=== PATIENT | female | born 1995 | race Caucasian/White ===

== ENCOUNTER 2018-05-22 10:05 | Inpatient (IN) | payer BC ==
[2018-05-22] MEDS ORDERED: Misoprostol TAB* 100 MCG VAGINAL ONE (10:45)
--- NOTE | 2018-05-22 11:11 | HP ---
General Information - Reason for Visit Cervical ripening/ IOL for suspected macrosomia and GDM, diet-controlled, at 39 weeks gestation - General Information Maternal Age: 23 Grav: 1 Para: 0 SAB: 0 IEA: 0 Estimated Due Date: 05/28/18 Determined By: LMP Maternal Blood Type and Rh: A Positive - Results this Serology/RPR Result: Non-Reactive Rubella Result: Immune HBsAg Result: Negative HIV Result: Negative GBS Culture Result: Positive Past Medical History Delivery History: See Records - primigravida Pertinent Past Medical History: Non-Contributory - migraines, environmental allergies Pertinent Past Surgical History: See Records - wisdom tooth extraction Pertinent Family History: See Records - Hypertension - Antepartal Records Antepartal Records: Reviewed, Complicated by: - GDM- diet controlled Review of Systems Constitutional: Comfortable CV Complaint: No Respiratory: Shortness of Breath: No Gastrointestinal: No Nausea/Vomiting, Normal Bowel Movement Genitourinary: No Dysuria, No Bleeding, No Leaking Fluid Musculoskeletal: No Complaint, No Epigastric Pain Neurological: No Headache, No Visual Changes Movement: Normal Exam Allergies/Adverse Reactions: Allergies No Known Allergies Allergy (Verified 05/22/18 11:11) Vital Signs 05/22/18 10:10 Temperature 97.2 F Pulse Rate 69 Respiratory 20 Rate Blood Pressure 131/71 (mmHg) O2 Sat by Pulse 99 Oximetry - Measurements Height: 5 ft 9 in Weight: 94.801 kg Weight in lbs: 209.501417 Body Mass Index (BMI): 30.8 Pre- Weight: 78.018 kg Weight Gained This : 37 lbs and 0 ozs - Exam Breast: Breast Exam Deferred CVA: No CVA Tenderness Extremities: Edema - trace pedal edema Heart: Normal Rhythm/Heart Sounds HEENT: No Significant Findings Lungs: Clear Bilaterally Rectal: Rectal Exam Deferred Reflexes: DTR 2+ Thyroid: No Thyromegaly - Abdominal Exam Abdomen Exam: Non-Tender Abdomen Exam Comment: Size>dates - Ultrasound/Biophysical Profile Ultrasound Status: Not Done Targeted Exam Findings See L&D Outpatient Visit Provider Note for Findings: N/A Estimated Weight: 9# Cervical Exam: 1cm Effacement: 50% Station: -2 Presenting Part: Vertex Membrane Status: Intact Bleeding/Discharge: None EFM Findings - External Monitor Findings Baseline Heart Rate: 120 External Monitor Findings: Accelerations Present, No Pattern of Variable or Late Decelerations, Variability Moderate, Baseline Stable Contractions: Irregular, Mild, 45-90 Seconds Assessment/Plan - Assessment 23 year old at 39 1/7 weeks gestation with diet-controlled gestational diabetes aqnd suspected macrosomia with Cat I FHR tracing, no evidence of acidemia, membranes intact, Cox score 5. - Obstetrical Risk Factors Obstetrical Risk Factors: Gestational Diabetes Risk Factors Comment: suspected macrosomia - Plan Plan: Cervical Ripening, Admit - Anticipate Vaginal Delivery Plan Comment: Discussed options for plan of care with pt and at length. Discussed suspected macrosomia in the presence of GDM. Current EFW 4143 grams. Counseled that ACOG recommendations are to offer an elective with EFW > 4500 grams, but that due to margin of error on EFW by sono, it is difficult to know for sure how large the baby is. Counseled that risks of trial of labor w/ a macrosomic baby can include arrest disorder resulting in unplanned delivery, pelvic trauma, and shoulder dystocia, which can lead to injury to the , including fractures; brachial nerve injury which can lead to paralysis of the affected arm; and, rarely, . Counseled that risks of delivery, while also rare, can include injury, infection, and hemorrhage. After discussing risks and benefits of trial of labor, as addressed above, pt and state a strong preference for attempting vaginal . They are aware that in the presence of prolonged second stage may recommend delivery. Discussed options for proceeding with IOL. Cox score currently 5. Recommended cervical ripening. Discussed options for cervical ripening, including misoprostol and Cervidil. After discussing options with pt, plan made to start with vaginal misoprostol, and consider Cervidil overnight if further ripening required. - Date/Time of Admission Date of Admission: 05/22/18 Time of Admission: 10:45
--- NOTE | 2018-05-22 15:45 | PN ---
Progress Note - Progress Note Date of Service: 05/22/18 SOAP: Subjective: [Pt reports she is feeling regular ctx, some moderately strong, others just "crampy." Still reasonably comfortable. Reports active FM. Denies SROM. ] Objective: [FHR tracing: baseline- 130, moderate variability, + accels, moderate variability, no decels UC's mild, irregular Cervical exam: 2cm/ 80%/ -2, Cox score 8 Membranes intact Vital signs stable: BP 119/63, P-64] Assessment: [23 year old at 39 1/7 weeks gestation with diet-controlled GDM, no evidence of acidemia, with cervix favorable for induction] Plan: [Discussed options with pt and , including initiating Pitocin induction, attempting to further ripen cervix, or waiting until AM to start Pitocin induction. Recommended trial of Pitocin unless pt w/ preference to wait until morning. Pt prefers to initiate Pitocin at this time. Discussed risks and benefits of Pitocin induction, need for continuous monitoring. Will initiate low dose Pitocin at 2 mu/ min Will start GBS prophylaxis at onset active labor]
[2018-05-22] MEDS ORDERED: Oxytocin in LR* 20 UNITS/1,000 ML BAG IVPB SCH (16:00)
[2018-05-22 16:12] LABS: ABS Basophils 0.1 10^3/ul (0-0.2); ABS Eosinophils 0.1 10^3/ul (0-0.6); ABS Lymphocytes 1.9 10^3/ul (1.0-4.8); ABS Monocytes 1.1 10^3/ul (0-0.8); ABS Neutrophils 7.3 10^3/ul (1.5-7.7); ABS Nucleated RBC 0 10^3/ul; Hematocrit 31 % (35-47); Hemoglobin 10.3 g/dl (12.0-16.0); Lymphocyte % 18.5 % (25-47); Mean Corpuscular HGB Conc 33 g/dl (31-36); Mean Corpuscular Hemoglobin 27 pg (27-31); Mean Corpuscular Volume 83 fL (80-97); Mean Platelet Volume 7.6 um3 (7.4-10.4); Nucleated Red Blood Cells % 0.1; Platelet Count 338 10^3/ul (150-450); Red Blood Count 3.77 10^6/ul (4.00-5.40); Red Cell Distribution Width 15 % (10.5-15); White Blood Count 10.5 10^3/ul (3.5-10.8)
[2018-05-22] MEDS ORDERED: OBEPIDURAL* 250 ML EPIDURAL ONE (21:42)
[2018-05-22] MEDS ORDERED: Sodium Citrate/Citric Acid* 15 ML UDC PO PRN (22:18)
[2018-05-22] MEDS ORDERED: Phenylephrine IV* 40 MCG/ML 10 ML SYRINGE IV PUSH PRN (22:18)
[2018-05-22] MEDS ORDERED: Famotidine TAB* 20 MG PO PRN (22:18)
[2018-05-22] MEDS ORDERED: EPHEDrine (Pressors)* 50 MG/ML VIAL IV PUSH PRN (22:18)
[2018-05-22] MEDS ORDERED: OBEPIDURAL* 250 ML EPIDURAL SCH (23:00)
[2018-05-22] MEDS ORDERED: Penicillin G Potassium IV* 5,000,000 UNITS in NS 0.9% 100 ML* 100 ML IVPB ONE (23:39)
[2018-05-23] MEDS ORDERED: Glycerin ADULT SUPP PR PRN (02:05)
[2018-05-23] MEDS ORDERED: Witch Hazel PAD* JAR TOPICAL PRN (02:05)
[2018-05-23] MEDS ORDERED: Acetaminophen TAB* 325 MG PO PRN (02:05)
[2018-05-23] MEDS ORDERED: Dibucaine 1% 28.35 GM TUBE PR PRN (02:05)
[2018-05-23] MEDS ORDERED: Methylergonovine INJ* 0.2 MG/ML 1ML AMP ONE (02:36)
[2018-05-23] MEDS ORDERED: Oxytocin in LR* 20 UNITS/1,000 ML BAG IVPB SCH (03:00)
--- NOTE | 2018-05-23 03:29 | PROCNOTE ---
[facility] OB: Delivery Note - Delivery A Date of : 05/23/18 Time of : 01:59 [place] Sex: Male Weight at : 4.28 kg Score 1 Minute: 9 Score 5 Minutes: 9 Gestational Age in Weeks and Days at Delivery: 39 Weeks and 2 Days Delivery Method: Spontaneous Vaginal Labor: Induced Did Patient attempt ?: N/A, No Previous Amniotic Fluid: Clear Estimated Blood Loss: 800 Anesthesia/Analgesia: CEI for Labor Delivered By: Ewa Hoff - Nursery Level of Nursery: Regular/Bedside - Perineum Perineal Injury: 2nd Degree Perineal Repair: By Delivering Practioner - Events Delivery Events of Note: Pitocin During Labor, Partial Course of Antibiotics, Post- Bleeding - Meds Given - Risk for Falls Delivered OB Patient- Risk for Falls: Heavy Bleeding Fall Risk: Patient is at High Risk for Falls - Additional Delivery Notes Additional Delivery Notes: Pt admitted to L&D for scheduled induction of labor at 39 1/7 weeks gestation for GDM and suspected macrosomia. Cervical ripening initiated with misoprostol. After one dose, cervix found to be favorable for induction of labor and Pitocin initiated. Pt remained comfortable with Pitocin until SROM with clear fluid occurred at 2128. At that time contractions became very intense , and pt requested and received an epidural with good relief of pain. Pt continued to progress and at 0054 began to push. At that time Dr. Tavarez notified and came to be present for the in case of shoulder dystocia. Pt pushed effectively with good effort and progressed to . Infant's head delivered OA to FIORELLA. Shoulders then delivered with gentle traction. to maternal abdomen, vigorous with lusty cry. After pulsation of cord ceased cord clamped x2 and cut by 's father. After nearly 30 minutes of gentle cord traction, placenta did not deliver, so Dr. Tavarez called to bedside to assist, and he delivered the placenta. At that time, Pitocin increased to 250 cc/ hr. Brisk bleeding noted, and several large clots expressed. Fundal massage performed and Cytotec 400 mcg administered MN. Bleeding slowed then more clots expressed and methergine 0.2mg administered IM. Bleeding minimal since that time. Second degree perineal laceration repaired using 3-0 Rapide suture resulting in good tissue approximation and hemostasis. Infant starting to breastfeed. Mother and stable at the time of this note.
[2018-05-23] MEDS ORDERED: Methylergonovine INJ* 0.2 MG/ML 1ML AMP IM ONE (03:34)
[2018-05-23] MEDS ORDERED: Misoprostol TAB* 200 MCG PR ONE (03:34)
[2018-05-23] MEDS ORDERED: Penicillin G Potassium IV* 2,500,000 UNITS in NS 0.9% 100 ML* 100 ML IVPB SCH (04:00)
[2018-05-23 06:46] LABS: ABS Basophils 0 10^3/ul (0-0.2); ABS Eosinophils 0 10^3/ul (0-0.6); ABS Lymphocytes 1.8 10^3/ul (1.0-4.8); ABS Monocytes 1.4 10^3/ul (0-0.8); ABS Neutrophils 16.5 10^3/ul (1.5-7.7); ABS Nucleated RBC 0 10^3/ul; Eosinophil % 0.1 % (0-6); Hematocrit 30 % (35-47); Hemoglobin 9.8 g/dl (12.0-16.0); Lymphocyte % 8.9 % (25-47); Mean Corpuscular HGB Conc 33 g/dl (31-36); Mean Corpuscular Hemoglobin 27 pg (27-31); Mean Corpuscular Volume 83 fL (80-97); Mean Platelet Volume 7.4 um3 (7.4-10.4); Nucleated Red Blood Cells % 0.1; Platelet Count 296 10^3/ul (150-450); Red Blood Count 3.61 10^6/ul (4.00-5.40); Red Cell Distribution Width 15 % (10.5-15); White Blood Count 19.7 10^3/ul (3.5-10.8)
[2018-05-23] MEDS: Ibuprofen TAB* 600 MG PO PRN ×3 (07:56→19:36)
[2018-05-23] MEDS: Docusate CAP* 100 MG PO SCH ×3 (07:56→19:36)
[2018-05-23] MEDS: Simethicone TAB* 80 MG TAB.CHEW PO SCH ×2 (13:48→19:22)
[2018-05-24] MEDS: Ibuprofen TAB* 600 MG PO PRN ×4 (01:15→19:36)
[2018-05-24] MEDS: Docusate CAP* 100 MG PO SCH ×3 (07:35→19:35)
[2018-05-24 07:39] LABS: ABS Basophils 0 10^3/ul (0-0.2); ABS Eosinophils 0.2 10^3/ul (0-0.6); ABS Lymphocytes 2.5 10^3/ul (1.0-4.8); ABS Monocytes 1.1 10^3/ul (0-0.8); ABS Neutrophils 8.7 10^3/ul (1.5-7.7); ABS Nucleated RBC 0 10^3/ul; Eosinophil % 1.9 % (0-6); Hematocrit 25 % (35-47); Hemoglobin 8.1 g/dl (12.0-16.0); Lymphocyte % 19.7 % (25-47); Mean Corpuscular HGB Conc 33 g/dl (31-36); Mean Corpuscular Hemoglobin 27 pg (27-31); Mean Corpuscular Volume 84 fL (80-97); Mean Platelet Volume 7.5 um3 (7.4-10.4); Nucleated Red Blood Cells % 0.1; Platelet Count 290 10^3/ul (150-450); Red Blood Count 2.95 10^6/ul (4.00-5.40); Red Cell Distribution Width 15 % (10.5-15); White Blood Count 12.5 10^3/ul (3.5-10.8)
[2018-05-24] MEDS: Ferrous Gluconate TAB* 324 MG TAB PO SCH (08:25)
--- NOTE | 2018-05-24 15:45 | PTEDU ---
Patient Name: SIMRAN LAW SIMRAN LAW selected video: Never Ever Shake a Baby to view on 05/24/2018 at 3:44:51 PM [id number]
[2018-05-25] MEDS: Ibuprofen TAB* 600 MG PO PRN (04:29)
[2018-05-25 09:02] VITALS: BP 122/68
[2018-05-25] MEDS: Docusate CAP* 100 MG PO SCH (09:32)
[2018-05-25] MEDS: Ferrous Gluconate TAB* 324 MG TAB PO SCH (09:32)
== END 2018-05-25 12:27 | disposition home or self-care (01) | DRG 560 ==
LOC: MCHOBOUT 10:05 → MCHOB 10:45
PROVIDERS: ADMIT Midwife; ATTEND Midwife
PROC: 10E0XZZ Delivery of Products of Conception, External Approach (ICD-10-PCS; principal; 2018-05-25)
PROC: 3E0P7VZ Introduction of Hormone into Female Reproductive, Via Natural or Artificial Opening (ICD-10-PCS; 2018-05-25)
PROC: 3E033VJ Introduction of Other Hormone into Peripheral Vein, Percutaneous Approach (ICD-10-PCS; 2018-05-25)
PROC: 4A1HXCZ Monitoring of Products of Conception, Cardiac Rate, External Approach (ICD-10-PCS; 2018-05-25)
PROC: 0KQM0ZZ Repair Perineum Muscle, Open Approach (ICD-10-PCS; 2018-05-25)
PROC: 0UCG7ZZ Extirpation of Matter from Vagina, Via Natural or Artificial Opening (ICD-10-PCS; 2018-05-25)
DX: O24.420 Gestational diabetes mellitus in childbirth, diet controlled (principal); O72.1 Other immediate postpartum hemorrhage; Z37.0 Single live birth; Z3A.39 39 weeks gestation of pregnancy; O36.63X0 Maternal care for excessive fetal growth, third trimester, not applicable or unspecified; O99.824 Streptococcus B carrier state complicating childbirth; Z91.048 Other nonmedicinal substance allergy status; Z82.49 Family history of ischemic heart disease and other diseases of the circulatory system; O70.1 Second degree perineal laceration during delivery; O90.81 Anemia of the puerperium
CPT/HCPCS: 36415; 85025; 86850; 86900; 86901; A9270-GY; J2210; J2540; S0191

== ENCOUNTER 2019-10-14 16:22 | Emergency (ER) | payer BC ==
[2019-10-14 17:10] VITALS: BP 139/73
--- NOTE | 2019-10-14 17:30 | UC ---
Throat Pain/Nasal Dmitri HPI - HPI Summary HPI Summary: Pt presents with c/o ST X 1 week. Pt states right side hurts worse than left. Pain is worse at end of day and with swallowing. NO difficulty with swallowing. Denies fever or chills. - History of Current Complaint Chief Complaint: UCGeneralIllness Stated Complaint: SORE THOAT Time Seen by Provider: 10/14/19 17:04 Hx Obtained From: Patient ?: No Onset/Duration: Gradual Onset, Lasting Days, Still Present Severity: Mild Pain Intensity: 4 Cough: Nonproductive Associated Signs & Symptoms: Positive: Dysphagia - Epiglottits Risk Factors Epiglottis Risk Factors: Negative - Allergies/Home Medications Allergies/Adverse Reactions: Allergies Allergy/AdvReac Type Severity Reaction Status Date / Time seasonal Allergy Congestion Uncoded 10/14/19 17:11 Home Medications: Home Medications Vitamin Tablet 1 tab PO DAILY 05/22/18 [History Confirmed 10/14/19] ZyrTEC 10 MG TAB* 10 mg PO DAILY 05/22/18 [History Confirmed 10/14/19] Acetaminophen TAB* [Tylenol TAB*] 650 mg PO Q4H PRN tab 05/25/18 [Rx Confirmed 10/14/19] Ibuprofen TAB* [Motrin TAB* 600 MG] 600 mg PO Q6H PRN tab 05/25/18 [Rx Confirmed 10/14/19] PMH/Surg Hx/FS Hx/Imm Hx Previously Healthy: Yes - Surgical History Surgical History: None - Family History Known Family History: Positive: Cardiac Disease - Social History Occupation: Employed Full-time Lives: With Family Alcohol Use: Rare Substance Use Type: None Smoking Status (MU): Never Smoked Tobacco Have You Smoked in the Last Year: No - Immunization History Most Recent Influenza Vaccination: 05/06/18 Most Recent Pneumonia Vaccination: N/A Vaccination Up to Date: Yes Review of Systems All Other Systems Reviewed And Are Negative: Yes Constitutional: Positive: Negative Skin: Positive: Negative Eyes: Positive: Negative ENT: Positive: Sore Throat Respiratory: Positive: Cough Cardiovascular: Positive: Negative Gastrointestinal: Positive: Negative Genitourinary: Positive: Negative Motor: Positive: Negative Neurovascular: Positive: Negative Musculoskeletal: Positive: Negative Neurological/Mental Status: Positive: Negative Psychological: Positive: Negative Is Patient Immunocompromised?: No Physical Exam Triage Information Reviewed: Yes Appearance: Well-Appearing Vital Signs: Initial Vital Signs Temp 99.7 F 10/14/19 17:05 Pulse 96 10/14/19 17:05 Resp 18 10/14/19 17:05 BP 139/73 10/14/19 17:05 Pulse Ox 100 10/14/19 17:05 Vital Signs Reviewed: Yes Eye Exam: Normal ENT: Positive: Pharyngeal erythema, Tonsillar swelling Dental Exam: Normal Neck exam: Normal Neck: Positive: Supple, Nontender, No Lymphadenopathy Respiratory: Positive: No respiratory distress Musculoskeletal Exam: Normal Neurological Exam: Normal Psychological Exam: Normal Skin Exam: Normal Throat Pain/Nasal Course/Dx - Differential Dx/Diagnosis Differential Diagnosis/HQI/PQRI: Mononucleosis, Pharyngitis, Tonsillitis Provider Diagnosis: Sore throat (viral) Discharge ED - Sign-Out/Discharge Documenting (check all that apply): Patient Departure All imaging exams completed and their final reports reviewed: No Studies - Discharge Plan Condition: Stable Disposition: HOME Patient Education Materials: Pharyngitis (ED), Safe Use of NSAIDs (ED) Referrals: Sandra Chacon MD [Primary Care Provider] - If Needed - Billing Disposition and Condition Condition: STABLE Disposition: Home
== END 2019-10-14 17:36 | disposition home or self-care (01) ==
LOC: UCCORT 16:22
DX: J02.9 Acute pharyngitis, unspecified (principal); R05 Cough; Z91.09 Other allergy status, other than to drugs and biological substances
CPT/HCPCS: 87070; 87651; 99211; G0463

== ENCOUNTER 2020-11-14 07:57 | Inpatient (IN) ==
[2020-11-14] MEDS ORDERED: Lactated Ringers 1000 ml BAG 1,000 ML IV ONE ×2 (08:22→20:13)
[2020-11-14] MEDS ORDERED: Buffered Lidocaine 1% SYRIN 1 ml INTRADERM ONE (08:22)
[2020-11-14 10:00] LABS: ABS Basophils 0.1 10^3/ul (0-0.2); ABS Eosinophils 0.2 10^3/ul (0-0.6); ABS Lymphocytes 2.6 10^3/ul (1.0-4.8); ABS Monocytes 1.5 10^3/ul (0-0.8); ABS Neutrophils 10.3 10^3/ul (1.5-7.7); Eosinophil % 1.2 %; Hematocrit 35 % (35-47); Hemoglobin 11.9 g/dL (12.0-16.0); Lymphocyte % 17.6 %; Mean Corpuscular HGB Conc 34 g/dL (31-36); Mean Corpuscular Hemoglobin 31 pg (27-31); Mean Corpuscular Volume 93 fL (80-97); Mean Platelet Volume 7.1 fL (7.4-10.4); Nucleated Red Blood Cells % 0.1; Platelet Count 379 10^3/uL (150-450); Red Blood Count 3.79 10^6 /uL (3.70-4.87); Red Cell Distribution Width 14 % (10-15); White Blood Count 14.6 10^3/uL (3.5-10.8)
[2020-11-14 10:15] LABS: Urine Benzodiazepine Screen None Detected (None Detect); Urine Cannabinoids Screen None Detected (None Detect); Urine Opiates Screen None Detected (None Detect)
[2020-11-14] MEDS ORDERED: Oxytocin in LR 20 UNITS/1,000 ML BAG IVPB SCH (15:00)
[2020-11-14] MEDS ORDERED: OBEPIDURAL 250 ML EPIDURAL ONE (19:10)
[2020-11-14] MEDS: Lactated Ringers 1000 ml BAG 1,000 ML IV SCH ×2 (19:30→22:06)
[2020-11-14] MEDS ORDERED: Bupivacaine 0.25% SDV PF 10 ML VIAL INJ ONE (19:35)
[2020-11-14] MEDS ORDERED: Phenylephrine 40 mcg/mL 10mL (400mcg) SYRINGE IV PUSH PRN ×2 (20:13)
[2020-11-14] MEDS ORDERED: Sodium Citrate/Citric Acid LIQ 15 ML UDC PO PRN (20:13)
[2020-11-14] MEDS ORDERED: EPHEDrine (Pressors) 50 MG/ML VIAL IV PUSH PRN ×2 (20:13)
[2020-11-14] MEDS ORDERED: Lactated Ringers 1000 ml BAG 500 ML IV PRN ×2 (20:13)
[2020-11-14] MEDS ORDERED: Lactated Ringers 1000 ml BAG 1,000 ML IV SCH (21:00)
[2020-11-14] MEDS ORDERED: OBEPIDURAL 250 ML EPIDURAL SCH (21:00)
[2020-11-14 21:20] LABS: Urine Appearance Clear; Urine Bilirubin Negative (Negative); Urine Blood Negative (Negative); Urine Color Colorless; Urine Glucose Negative (Negative); Urine Ketones Negative (Negative); Urine Nitrite Negative (Negative); Urine Protein Negative (Negative); Urine Specific Gravity 1.002 (1.002-1.030); Urine Urobilinogen Negative (Negative)
[2020-11-15] MEDS ORDERED: Dibucaine 1% OINT 28.35 GM TUBE PR PRN (03:10)
[2020-11-15] MEDS ORDERED: Methylergonovine 0.2 mg AMPULE 1 ml AMP IM ONE (03:10)
[2020-11-15] MEDS ORDERED: Witch Hazel PAD JAR TOPICAL PRN (03:10)
[2020-11-15] MEDS ORDERED: Varicella Virus Vaccine Live 0.5 ML VIAL SUBCUT ONE (03:10)
[2020-11-15] MEDS ORDERED: Oxytocin in LR 20 UNITS/1,000 ML BAG IVPB SCH (04:00)
[2020-11-16 06:26] LABS: ABS Basophils 0.1 10^3/ul (0-0.2); ABS Eosinophils 0.4 10^3/ul (0-0.6); ABS Lymphocytes 3.7 10^3/ul (1.0-4.8); ABS Monocytes 1.5 10^3/ul (0-0.8); ABS Neutrophils 11.4 10^3/ul (1.5-7.7); Eosinophil % 2.2 %; Hematocrit 30 % (35-47); Hemoglobin 9.9 g/dL (12.0-16.0); Lymphocyte % 21.8 %; Mean Corpuscular HGB Conc 33 g/dL (31-36); Mean Corpuscular Hemoglobin 31 pg (27-31); Mean Corpuscular Volume 94 fL (80-97); Mean Platelet Volume 6.8 fL (7.4-10.4); Platelet Count 376 10^3/uL (150-450); Red Cell Distribution Width 14 % (10-15); White Blood Count 17.1 10^3/uL (3.5-10.8)
[2020-11-16 09:28] VITALS: BP 108/58
== END 2020-11-16 12:51 | disposition home or self-care (01) | DRG 560 ==
LOC: MCHOBOUT 07:57 → MCHOB 08:24
PROVIDERS: ADMIT Midwife; ATTEND Midwife